=== PATIENT | male | born 1955 | race Two or more races ===

== ENCOUNTER → 2016-06-01 | Day surgery (SDC) | payer OTHER ==
[~2016-06-01] MED LIST: ACIP20TA19 PO; ADVA250A INH; BENI40TA30 PO; GENTAMICIN SULFATE 80 MG/2 ML VIAL ONE; KETOROLAC TROMETHAMINE 30 MG/ML (IVP) VIAL ONE; LACTATED RINGER'S 1000 ML INJ 1,000 ML ONE; MIDAZOLAM HCL 2 MG/2 ML VIAL ONE; MORPHINE SULFATE 4 MG/ML INJ ONE; ONDANSETRON HCL 4 MG/2 ML VIAL IV PUSH ONE; PROPOFOL 200 MG/20 ML AMP IV ONE; SODIUM CHLORIDE 0.9% SOLN 100 ML BAG IV ONE
--- NOTE | 2016-06-01 15:34 | TN ---
cc: COURTNEY DANIELS M.D. DATE OF SURGERY: 06/01/2016 PREOPERATIVE DIAGNOSIS 1. Meatal stenosis. 2. Recurrent urethral strictures. 3. 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 POSTOPERATIVE DIAGNOSIS 1. Meatal stenosis. 2. Recurrent urethral strictures. 3. 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 PROCEDURE Cystourethroscopy with urethral meatal dilation and direct visual internal urethrotomy of recurrent urethral strictures (DVIU), (CPT code 22253). INDICATIONS Mr. Oleary is a 61-year-old gentleman with a long history of balanitis xerotica obliterans of the foreskin and glans as well as recurrent urethral strictures. He has previously been under the care of a reconstructive urologist. He was performing self-obturation with a catheter but has been unable due to the meatal stenosis. He presents now for dilation and internal urethrotomy. FINDINGS Uncircumcised male phallus status post previous dorsal slit of the prepuce. There is essentially severe scarring of the glans and adhesion of the prepuce essentially causing a deformity of the glans penis. The meatus is strictured and located inferiorly adjacent to the prepuce. The urethra itself cystoscopically shows that the entire urethra is smaller in caliber with guillaume-stricturing and the bulbous portion shows two or three fibrotic annular strictures with severe spongiofibrosis. The prostatic urethra was fairly unremarkable with some mild hypertrophy and mildly elevated open bladder neck. The bladder itself shows ureteral orifice normal size, shape and position effluxing clear urine. Mild trabeculation. No diverticula cellules. There are no stones, tumors or abnormal mucosa within the bladder itself. No other abnormalities. DETAILS OF PROCEDURE The procedure as well as the risks and benefits were explained to the patient and informed consent was obtained. The patient was taken to the major operative theatre where he was placed in the supine position. The patient was identified as well as the operative site. A universal timeout was performed in the standard fashion. At this time general anesthetic and prophylactic intravenous antibiotics consisting of gentamicin 80 mg was administered. After adequate anesthetic he was placed in the low dorsal lithotomy position, prepped and draped in the usual sterile fashion. At this time urethral dilatation was performed of the meatus from 10-Emirati to 28-Emirati. A 22.5 Emirati cystoscope with a 30-degree lens was inserted into the urethra. It was actually fairly patent compared to the previous cystoscopy. The scope was placed all the way into the bladder and the entire bladder was systematically surveyed. The decision was made to perform a Sussy cut on one of the narrowing strictures in the bulbous urethra. Then using an optical urethrotome and a standard blade an incision was made at 12 o'clock, 4 and 8 o'clock which opens up nicely. The scope was then removed and an 18-Emirati coude-tip catheter was placed with minimal difficulty into the bladder with clear urine effluxing. 10 cc of sterile water was insufflated into the balloon and placed to straight drain. The patient tolerated the procedure well, emerged from anesthetic without difficulty and transferred to Recovery in stable condition to be discharged home when criteria is met. There were no obvious complications. MD IVORY Lovelace/JUAN /3:15 PM /3:22 PM
== END | disposition home or self-care (01) ==
LOC: ESDC 11:14
PROVIDERS: ATTEND Urology
DX: N35.9 Urethral stricture, unspecified (principal); N48.0 Leukoplakia of penis
CPT/HCPCS: J1580; J1885; J2250; J2270; J2405; J3010; J7120